=== PATIENT | female | born 1990 | race Hispanic/Latino ===

== ENCOUNTER 2018-12-25 04:46 | Inpatient (IN) | payer OTHER ==
--- OUTSIDE RECORDS SUMMARY | 2018-12-25 04:49 | XMS REPORT ---
:1990 Author Organization [employer] Care Team Providers Name Role Phone Dennys Francis Provider Role Unavailable Allergies, Adverse Reactions, Alerts Substance Reaction Event Type N.K.D.A. 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 Active Problem Encounter for supervision of other Z34.82 Active normal , second trimester Problem Encounter for supervision of Z34.91 Active low-risk in first trimester Medications Medication Code Code Instructions Start End Status Dosage System Date Date Ketoconazole [facility]ED [facility] [id number] 2 % Externally December Active 1 application Once a day , to affected 2018 2018 area Breast Pump FOR[facility] NAMED [facility] [id number] - November Active as directed 2018 Betamethasone FOR[facility] NAMED [facility] [id number] 0.05 % December Active 1 application Dipropionate Aug Externally , to affected Once a day 2018 2018 area Nystatin-Triamci FORMER[facility] NAMED [facility] [id number] November Active 1 application nolone UNIT/GM , to affected Externally 2018 2019 area Twice a day Results No Known Results Summary Purpose eClinicalWorks Submission
[2018-12-25] MEDS ORDERED: Ringers Lactate 1,000 ML IV PRN ×2 (04:52→05:31)
[2018-12-25] MEDS ORDERED: Ringers Lactate 1,000 ML IV SCH ×2 (05:00→06:00)
[2018-12-25] MEDS ORDERED: CARBOPROST TROME 250 MCG/ML IM PRN (05:31)
[2018-12-25] MEDS ORDERED: PROMETHAZINE 25 MG/ML VIAL IV PRN (05:31)
[2018-12-25] MEDS ORDERED: METHYLERGONOVINE 0.2MG/ML AMP IM PRN (05:31)
[2018-12-25] MEDS ORDERED: BUTORPHANOL 1 MG/ML INJ IV PRN (05:31)
[2018-12-25 05:38] VITALS: BMI 32.5
[2018-12-25 05:44] LABS: RPR Titer ND
[2018-12-25 05:59] LABS: Absolute Lymphocytes (CBC) 2.3 K/uL (0.7-4.9); Absolute Monocytes 0.7 K/uL (0.1-1.3); Absolute Neutrophil 8.4 K/uL (1.8-8.0); Basophils % 0.2 % (0-1.3); Eosinophils % 0.7 % (0-4.4); Hematocrit 38.1 % (36.0-45.0); Lymphocytes % 19.8 % (15.3-44.8); MPV 10.6 fL (7.6-11.3); Monocytes % 6.2 % (3.3-12.3); RBC Red Blood Cell Count 4.51 M/uL (3.86-4.86)
[2018-12-25] MEDS ORDERED: OXYTOCIN/LR 20 UNIT/1,000 ML BAG IV SCH (06:00)
[2018-12-25] MEDS ORDERED: FENTANYL CITR 100 MCG/2 ML IV ONE (07:14)
[2018-12-25] MEDS ORDERED: FENTANYL/BUPIVACAINE/NS/PF 200 MCG/100 ML BAG EP PRN (07:15)
[2018-12-25] MEDS ORDERED: BUPIVACAINE 0.25% PF 30 ML VIAL IV ONE (07:16)
--- NOTE | 2018-12-25 09:57 | P.OBGYNHP ---
Certification for Inpatient Patient admitted to: Inpatient With expected LOS: >2 Midnights Patient will require the following post-hospital care: None Practitioner: I am a practitioner with admitting privileges, knowledge of patient current condition, hospital course, and medical plan of care. Services: Services provided to patient in accordance with Admission requirements found in Title 42 Section 412.3 of the Code of Federal Regulations Patient History Date of Service: 12/25/18 Reason for admission: Spontaneous rupture of membranes History of Present Illness: Patient is a 28-year-old 2 para 1001 who presents at 38 weeks 5 days gestation with spontaneous rupture of membranes. 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 Patient presented to Labor and delivery and was confirmed to have spontaneous rupture of membranes and was noted to be 3-4 cm dilated. Patient is GBS negative. She has obtained care with tn beginning at 10 weeks gestation. care has been complicated by genital warts which is been few and small. A few of them were excised during the due to patient request. None are blocking the vaginal introitus. Patient had a quad screen done which was low risk. Ultrasounds have been within normal. Anatomy ultrasound was normal. Last ultrasound was done on December 15 at which time estimated weight was 6+ lb, cephalic presentation, fundal placenta, normal AUGUST. See records for further details. Allergies No Known Allergies Allergy (Unverified 02/23/15 21:54) Home Medications: Pnv Cmb#95/Ferrous Fumarate/FA [ Tablet] 1 tab PO DAILY 08/31/15 - Past Medical/Surgical History Has patient received pneumonia vaccine in the past: No Diabetic: No -: benign mass removed from wrist and neck as a teen -: NVD 2014 - Family History Family History: Reviewed- Non-Contributory - Social History Smoking Status: Never smoker Alcohol use: No CD- Drugs: No Caffeine use: No Place of Residence: Home Review of Systems 10-point ROS is otherwise unremarkable Physical Examination - Vital Signs Temperature: 98.1 F Blood Pressure: 135/73 Pulse: 71 Respirations: 18 - General General: Alert, Oriented x3, Mild distress HEENT: Atraumatic Neck: Supple Respiratory: Normal air movement Cardiovascular: No edema, Normal pulses Breasts: Normal configuration, Normal contours, Symmetrical, Other (Large rash between the 2 breasts likely eczema) Gastrointestinal: Other (Gravid) Musculoskeletal: No clubbing, No swelling Neurological: Normal gait, Normal speech - Female Pelvic External genitalia: Normal, Lesions (Few small condylomas) Vagina: Normal, [place], Moist Cervix: Dilation (4-5), Effacement (70%), station (-2) Uterus: Gravid Adnexa: Unable to evaluate - Obstetrics heart rate tracing: Category 2 Amniotic membrane: SROM Laboratory Data (last 24 hrs) 12/25/18 05:31: WBC Cancelled, Hgb Cancelled, Hct Cancelled, Plt Count Cancelled 12/25/18 05:08: WBC 11.5 H, Hgb 12.7, Hct 38.1, Plt Count 267 Microbiology Data (last 24 hrs): GBS negative Assessment and Plan - Plan Patient is a 28-year-old 001 who presented at 38 weeks and 5 days gestation with spontaneous rupture of membranes. Patient has been having consisting contractions Pitocin has been started. Patient has received an epidural for pain management. She is now in labor. GBS is negative. Continuous maternal monitoring will be performed. Routine intrapartum care OB provided. Discharge Plan: Home Plan to discharge in: 48 Hours - Advance Directives Does patient have a Living Will: No Does patient have a Durable POA for Healthcare: No
[2018-12-25] MEDS ORDERED: LIDOCAINE 1% 20 ML MDV ONE (11:19)
[2018-12-25] MEDS ORDERED: METHYLERGONOVINE 0.2 MG TAB PO PRN (11:35)
[2018-12-25] MEDS ORDERED: IBUPROFEN 200 MG TAB PO PRN (11:35)
[2018-12-25] MEDS ORDERED: BISACODYL 10 MG RECTAL SUPP RECT PRN (11:35)
[2018-12-25] MEDS ORDERED: Oxycodone HCl/Acetaminophen 1 TAB TAB PO PRN (11:35)
[2018-12-25] MEDS ORDERED: DOCUSATE NA/SENNA CONC 1 TAB PO PRN (11:35)
[2018-12-25] MEDS ORDERED: ACETAMINOPHEN 500 MG TAB PO PRN (11:35)
[2018-12-25] MEDS ORDERED: ONDANSETRON 4 MG (ODT) TAB PO PRN (11:35)
--- NOTE | 2018-12-25 11:40 | P.OP ---
Date of Service: 12/25/18 Findings and Operative Technique Patient delivered a full female in cephalic presentation on 12/25/2018 at ___. was delivered over midline episiotomy. Once infant was delivered nose and mouth were suctioned with a suction bulb cord was clamped and cut and infant was placed on mother's abdomen for skin to skin bonding. Apgars were 9 and 10. Attention was then turned to the umbilical cord. Cord blood was obtained. Placenta was then delivered with gentle traction at ____. Placenta was examined and noted to be intact. Attention was then turned to the uterus uterine massage was performed and fundus was found to be firm. Pitocin was given. Attention was then turned to the midline episiotomy which was noted to be a first-degree. This was repaired with a 2 0 Vicryl in the usual fashion. 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 This was anesthetized with lidocaine. It was then grasped with the pickups and cut off with the Alexander scissors. It was placed in formalin for pathology. The base where the condyloma was excise was approximated with 3 O Vicryl with 3 simple sutures. Hemostasis was noted. Patient is doing well and bonding well with the baby. She plans to breastfeed. 1st stage of labor was . 2nd stage was . 's weight was found to be . EBL was 200 cc. Both mom and baby are doing well.
[2018-12-25 22:50] LABS: RPR (Rapid Plasma Reagin) NON-REACT (NON-REACT)
[2018-12-26 06:18] LABS: Absolute Lymphocytes (CBC) 2.4 K/uL (0.7-4.9); Absolute Monocytes 0.8 K/uL (0.1-1.3); Absolute Neutrophil 7.3 K/uL (1.8-8.0); Basophils % 0.4 % (0-1.3); Eosinophils % 1.3 % (0-4.4); Lymphocytes % 22.5 % (15.3-44.8); MPV 10.2 fL (7.6-11.3); Monocytes % 7.2 % (3.3-12.3); RBC Red Blood Cell Count 4.03 M/uL (3.86-4.86)
[2018-12-26 12:35] VITALS: BP 115/59; TEMP 97.5
[2018-12-30 04:27] LABS: HBsAG Nonreactive (Nonreactive)
== END 2018-12-26 13:55 | disposition home or self-care (01) | DRG 807 ==
LOC: 2ND-WC 04:46
PROVIDERS: ADMIT Student in an Organized Health Care Education/Training Program; ATTEND Student in an Organized Health Care Education/Training Program
PROC: 10E0XZZ Delivery of Products of Conception, External Approach (ICD-10-PCS; principal; 2018-12-25)
PROC: 0W8NXZZ Division of Female Perineum, External Approach (ICD-10-PCS; 2018-12-25)
PROC: 0HB8XZZ Excision of Buttock Skin, External Approach (ICD-10-PCS; 2018-12-25)
DX: O98.32 Other infections with a predominantly sexual mode of transmission complicating childbirth (principal); Z37.0 Single live birth; Z3A.38 38 weeks gestation of pregnancy; A63.0 Anogenital (venereal) warts
CPT/HCPCS: 36415; 85025; 86592; 86850; 86900; 86901; 87340; 88305; J2210; J2590; J3010